=== PATIENT | male | born 1980 | race Caucasian/White ===

== ENCOUNTER 2018-07-10 07:56 | Emergency (ER) | payer OTHER ==
[2018-07-10 08:16] VITALS: BP 138/94
--- NOTE | 2018-07-10 08:19 | ED Physician Documentation ---
PD HPI LOWER EXT INJURY - Stated complaint Stated Complaint: RT LITTLE TOE BRUSING/PX - Chief complaint Chief Complaint: Ext Problem - History obtained from History obtained from: Patient - History of Present Illness PD HPI LOW EXT INJURY LOCATION: Right, Toe Type of injury: Blunt / blow Timing - onset: Today Worsened by: Moving, Palpating, Other (Weight bearing.) Associated symptoms: Swelling, Discolored Similar symptoms before: Has not had sx before - Additional information Additional information: The patient is a 37-year-old active [employer] [place] male who presents with injury to his right little toe. He was up during the night and thinks he may have stubbed his toe, although he is not certain. When he awoke this morning he found his little toe swollen, with ecchymosis at the tip. It is painful with weightbearing, movement, or palpation. He denies history of similar symptoms in the past. Review of Systems Constitutional: denies: Fever Musculoskeletal: reports: Extremity pain (right little toe) PD PAST MEDICAL HISTORY - Past Medical History Endocrine/Autoimmune: None - Present Medications Home Medications: Ambulatory Orders Medication Instructions Recorded Confirmed Lisinopril 10 mg PO DAILY 07/10/18 07/10/18 - Allergies Allergies/Adverse Reactions: Allergies Allergy/AdvReac Type Severity Reaction Status Date / Time Penicillins Allergy Unknown Verified 07/10/18 08:05 PD ED PE NORMAL - Vitals Vital signs reviewed: Yes (borderline hypertension) - General General: Alert and oriented X 3, Well developed/nourished - HEENT HEENT: Atraumatic - Respiratory Respiratory: No respiratory distress - Derm Derm: No rash - Extremities Extremities: Other (There is swelling of the right little toe, with associated tenderness to palpation. There is ecchymosis at the tip, with subungual hematoma. Distal neurovascular is intact. There is no break in the integument. ) - Neuro Neuro: Alert and oriented X 3, No motor deficit, No sensory deficit Results - Vitals Vitals: Vital Signs - 24 hr 07/10/18 08:06 Temperature 36.3 C L Heart Rate 92 Respiratory 16 Rate Blood Pressure 138/94 H O2 Saturation 97 Oxygen O2 Source Room air - Rads (name of study) right toes Radiology: Prelim report reviewed, EMP read contemporaneously, See rad report ( Negative right fifth toe radiography.) PD MEDICAL DECISION MAKING - ED course Complexity details: reviewed results, considered differential, d/w patient ED course: The patient's presentation is significant for contusion to the right little toe with a subungual hematoma. I suspect the injury is caused by a narrow toe box which impinges his little toe against the fourth toe. There is no evidence of fracture or foreign body on radiographic imaging. I discussed with the patient the likely cause of his injury, symptomatic treatment and outpatient follow-up, as well as potentially worrisome signs or symptoms that should prompt reevaluation in the emergency department. - Sepsis Event Vital Signs: Vital Signs - 24 hr 07/10/18 08:06 Temperature 36.3 C L Heart Rate 92 Respiratory 16 Rate Blood Pressure 138/94 H O2 Saturation 97 Oxygen O2 Source Room air Departure - Departure Disposition: 01 Home, Self Care Clinical Impression: Contusion of right lesser toe(s) with damage to nail, initial encounter Condition: Stable Instructions: ED Crush Injury Toe No Fx Follow-Up: JONNA LEMA MD [Primary Care Provider] - Comments: Keep your right foot elevated as much the time as possible. You can use ibuprofen, up to 800 mg 3 times daily for its anti-inflammatory effect. Wear shoes or boots with a wider toe box. Follow up with your primary physician within 2 weeks. Call to schedule appointment. Return to the emergency department if you develop increasing pain or swelling, any sign of infection, or otherwise worsening symptoms.
--- NOTE | 2018-07-10 08:59 | XRAY Report ---
Procedure Date: 07/10/2018 Accession Number: [id number] / [id number] Procedure: XR - Toe(s) RT CPT Code: FULL RESULT: EXAM: RIGHT TOE RADIOGRAPHY EXAM DATE: 07/10/2018 08:38 AM. CLINICAL HISTORY: Injury right little toe. COMPARISON: None. TECHNIQUE: 3 views. FINDINGS: Bones: No fracture or bone lesion. Joints: No dislocation or subluxations. Soft Tissues: No soft tissue radiopaque foreign body. IMPRESSION: Negative right 5th toe radiography. RAD[facility]
== END 2018-07-10 09:15 | disposition home or self-care (01) ==
LOC: ED 07:56
DX: S90.221A Contusion of right lesser toe(s) with damage to nail, initial encounter (principal)
CPT/HCPCS: 73660; 99282

== ENCOUNTER 2018-08-22 16:27 | Emergency (ER) | payer OTHER ==
[2018-08-22] MEDS ORDERED: HYDROmorphone 1 MG/ML CARPUJECT IVP STA (17:21)
[2018-08-22] MEDS ORDERED: KETOROLAC 60 MG/2 ML VIAL IVP STA (17:21)
--- NOTE | 2018-08-22 17:24 | ED Physician Documentation ---
History of Present Illness - Stated complaint Stated Complaint: MALE - Chief complaint Chief Complaint: General - History obtained from History obtained from: Patient, Family - History of Present Illness Timing: How many weeks ago (1) Pain level max: 10 Pain level now: 10 Improved by: lying down Worsened by: standing - Additonal information Additional information: R testicular pain for the past week. Seen by PCP, started on levaquin for possible epididymitis. R testicle retracted for past week. Worsening pain today. Has not had any imaging, UA, or labs. Review of Systems Ten Systems: 10 systems reviewed and negative Constitutional: denies: Fever, Chills Ears: denies: Ear pain Nose: denies: Rhinorrhea / runny nose, Congestion Throat: denies: Sore throat Cardiac: denies: Chest pain / pressure Respiratory: denies: Cough GI: denies: Abdominal Pain, Nausea, Vomiting, Diarrhea : reports: Other (no STD exposure). denies: Hematuria, Discharge Skin: denies: Rash Musculoskeletal: denies: Neck pain, Back pain Neurologic: denies: Headache PD PAST MEDICAL HISTORY - Past Medical History Cardiovascular: Hypertension Respiratory: None Neuro: None Endocrine/Autoimmune: None GI: None : None HEENT: None Psych: None Musculoskeletal: None Derm: None - Past Surgical History Ortho: Spine surgery - Present Medications Home Medications: Ambulatory Orders Medication Instructions Recorded Confirmed Lisinopril 10 mg PO DAILY 07/10/18 07/10/18 Levofloxacin [Levaquin] 500 mg PO 08/22/18 08/22/18 Oxycodone HCl/Acetaminophen 1 - 2 each PO Q6H PRN #14 tablet 08/22/18 [Percocet 5-325 mg Tablet] - Allergies Allergies/Adverse Reactions: Allergies Allergy/AdvReac Type Severity Reaction Status Date / Time Penicillins Allergy Unknown Verified 08/22/18 16:32 - Social History Does the pt smoke?: No Smoking Status: Never smoker Does the pt drink ETOH?: Yes Does the pt have substance abuse?: No - Immunizations Immunizations are current?: Yes - POLST Patient has POLST: No PD ED PE NORMAL - Vitals Vital signs reviewed: Yes - General General: Alert and oriented X 3, Other (appears uncomfortable) - HEENT HEENT: Moist mucous membranes - Neck Neck: Supple, no meningeal sign - Cardiac Cardiac: RRR, Strong equal pulses - Respiratory Respiratory: No respiratory distress, Clear bilaterally - Abdomen Abdomen: Soft, Non tender, Non distended - Male Male : Other (TTP R testicle. elevated R testicle. no overlying skin changes.) - Derm Derm: Warm and dry - Neuro Neuro: Alert and oriented X 3 - Psych Psych: Normal mood, Normal affect Results - Vitals Vitals: Vital Signs - 24 hr 08/22/18 08/22/18 08/22/18 16:30 18:40 20:20 Temperature 36 C L 36.4 C L Heart Rate 97 88 97 Respiratory 20 16 16 Rate Blood Pressure 149/128 H 148/72 H 152/96 H O2 Saturation 97 98 98 Oxygen O2 Source Room air - Labs Labs: Laboratory Tests 08/22/18 08/22/18 08/22/18 17:30 17:30 17:30 WBC 5.5 RBC 4.93 Hgb 15.5 Hct 44.2 MCV 89.7 MCH 31.4 H MCHC 35.0 RDW 13.9 Plt Count 260 MPV 8.1 Neut # (Auto) 2.8 Lymph # (Auto) 2.1 Wetzel # (Auto) 0.4 Eos # (Auto) 0.2 Baso # (Auto) 0.1 Absolute Nucleated RBC 0.00 Nucleated RBC % 0.1 Sodium 137 Potassium 4.4 Chloride 101 Carbon Dioxide 30 Anion Gap 6.0 BUN 17 Creatinine 1.2 Estimated GFR (MDRD) 69 L Glucose 96 Calcium 9.9 Total Bilirubin < 0.2 L AST 89 H ALT 111 H Alkaline Phosphatase 56 Total Protein 8.1 Albumin 4.4 Globulin 3.7 Albumin/Globulin Ratio 1.2 Lipase 69 H Urine Color YELLOW Urine Clarity CLEAR Urine pH 6.0 Ur Specific [place] >=1.030 H Urine Protein NEGATIVE Urine Glucose (UA) NEGATIVE Urine Ketones NEGATIVE Urine Occult Blood NEGATIVE Urine Nitrite NEGATIVE Urine Bilirubin NEGATIVE Urine Urobilinogen 0.2 (NORMAL) Ur Leukocyte Esterase NEGATIVE Ur Microscopic Review NOT INDICATED Urine Culture Comments NOT INDICATED - Rads (name of study) testicular US Radiology: Prelim report reviewed, EMP read contemporaneously, See rad report (Within normal limits. ) PD MEDICAL DECISION MAKING - ED course Complexity details: reviewed results, re-evaluated patient, considered differential, d/w patient, d/w family ED course: Patient is a 38-year-old male with right testicular pain of unclear etiology. No acute findings on ultrasound, laboratory testing or urinalysis. Pain well controlled. Will place on pain medication for home and follow-up with urology this week as he has been referred by his doctor. Patient will return if he worsens. Patient counseled regarding signs and symptoms for which I believe and urgent re-evaluation would be necessary. Patient with good understanding of and agreement to plan and is comfortable going home at this time This document was made in part using voice recognition software. While efforts are made to proofread this document, sound alike and grammatical errors may occur. No evidence of ureteral stone or appendicitis or hernia - Sepsis Event Vital Signs: Vital Signs - 24 hr 08/22/18 08/22/18 08/22/18 16:30 18:40 20:20 Temperature 36 C L 36.4 C L Heart Rate 97 88 97 Respiratory 20 16 16 Rate Blood Pressure 149/128 H 148/72 H 152/96 H O2 Saturation 97 98 98 Oxygen O2 Source Room air Departure - Departure Disposition: 01 Home, Self Care Clinical Impression: Testicular pain, right Condition: Good Instructions: ED Testicular Pain UKO Follow-Up: JONNA LEMA MD [Primary Care Provider] - Within 3 Days Prescriptions: Oxycodone HCl/Acetaminophen [Percocet 5-325 mg Tablet] 1 - 2 each PO Q6H PRN #14 tablet PRN Reason: pain Comments: Return if you worsen. The cause of your symptoms is unclear today. Your ultrasound is normal today. your lab tests are normal today. Discharge Date/Time: 08/22/18 20:22
[2018-08-22 17:44] LABS: BASOPHILS # (AUTO) 0.1 10^3/uL (0.0-0.1); BASOPHILS % (AUTO) 1.2 %; EOSINOPHILS # (AUTO) 0.2 10^3/uL (0.0-0.7); EOSINOPHILS % (AUTO) 3.1 %; HGB - HEMOGLOBIN 15.5 g/dL (14.0-18.0); LYMPHOCYTES # (AUTO) 2.1 10^3/uL (1.5-3.5); LYMPHOCYTES % (AUTO) 37.3 %; MEAN CORPUSCULAR HEMOGLOBIN 31.4 pg (27.0-31.0); MEAN CORPUSCULAR VOLUME 89.7 fL (80.0-94.0); MEAN PLATELET VOLUME 8.1 fL (7.4-11.4); MONOCYTES # (AUTO) 0.4 10^3/uL (0.0-1.0); MONOCYTES % (AUTO) 7.9 %; NEUTROPHILS # (AUTO) 2.8 10^3/uL (1.5-6.6); NEUTROPHILS % (AUTO) 50.5 %; PLT - PLATELET COUNT 260 10^3/uL (130-450); RED BLOOD COUNT 4.93 10^6/uL (4.70-6.10); RED CELL DISTRIBUTION WIDTH 13.9 % (12.0-15.0); WHITE BLOOD COUNT 5.5 x10^3/uL (4.8-10.8)
[2018-08-22 17:47] LABS: BILIRUBIN,URINE NEGATIVE (NEGATIVE); GLUCOSE, URINE (UA) NEGATIVE (NEGATIVE); KETONES,URINE (UA) NEGATIVE (NEGATIVE); LEUKOCYTE ESTERASE, URINE NEGATIVE (NEGATIVE); NITRITE,URINE NEGATIVE (NEGATIVE); OCCULT BLOOD,URINE NEGATIVE (NEGATIVE); PROTEIN,URINE NEGATIVE (NEGATIVE); UROBILINOGEN,URINE 0.2 (NORMAL) E.U./dL (NORMAL)
[2018-08-22 17:53] LABS: CLARITY,URINE CLEAR (CLEAR)
[2018-08-22 18:02] LABS: ALBUMIN 4.4 g/dL (3.2-5.5); ALBUMIN/GLOBULIN RATIO 1.2 (1.0-2.2); ALKALINE PHOSPHATASE 56 IU/L (42-121); ALT ALANINE AMINOTRANSFERASE 111 IU/L (10-60); AST ASPARTATE AMINOTRANSFERASE 89 IU/L (10-42); BILIRUBIN,TOTAL < 0.2 mg/dL (0.2-1.0); BUN - BLOOD UREA NITROGEN 17 mg/dL (6-20); CALCIUM 9.9 mg/dL (8.5-10.3); CARBON DIOXIDE - CO2 30 mmol/L (21-32); CHLORIDE 101 mmol/L (101-111); CREATININE 1.2 mg/dL (0.6-1.2); GFR - MDRD 69 (>89); GLUCOSE 96 mg/dL (70-100); LIPASE 69 U/L (22-51); SODIUM 137 mmol/L (135-145); TOTAL PROTEIN 8.1 g/dL (6.7-8.2)
--- NOTE | 2018-08-22 18:42 | Ultrasound Report ---
Reason: R testicular pain Procedure Date: 08/22/2018 Accession Number: [id number] / [id number] Procedure: US - Testicle w/Doppler CPT Code: FULL RESULT: EXAM: SCROTAL ULTRASOUND EXAM DATE: 08/22/2018 06:12 PM. CLINICAL HISTORY: Right testicular pain. COMPARISON: None. TECHNIQUE: Real-time scanning was performed with static images obtained. Both color-flow and Doppler spectral analysis were utilized. FINDINGS: Right: Testis: 4.1 x 2.8 x 2.2 cm. Normal size and echotexture. No mass, calcification, or abnormal blood flow. Epididymis: 4.2 x 0.4 x 1.7 cm. Normal size and echotexture. No mass or abnormal blood flow. Hydrocele: None. Varicocele: None. Left: Testis: 3.7 x 2.8 x 2.1 cm. Normal size and echotexture. No mass, calcification, or abnormal blood flow. Epididymis: 3.6 x 0.4 x 0.7 cm. Normal size and echotexture. No mass or abnormal blood flow. Hydrocele: None. Varicocele: None. IMPRESSION: Within normal limits. RADIA
[2018-08-22] MEDS ORDERED: oxyCODONE/ACET 5/325 Prepack 4 PO STA (20:02)
[2018-08-22 20:21] VITALS: BP 152/96
== END 2018-08-22 20:22 | disposition home or self-care (01) ==
LOC: ED 16:27
DX: N50.811 Right testicular pain (principal); I10 Essential (primary) hypertension
CPT/HCPCS: 36415; 76870; 80053; 81003; 83690; 85025; 93975; 96374; 96375; 99283; 99284; J1170; 81001; 87086

== ENCOUNTER 2018-10-06 09:19 | Outpatient (CLI) | payer OTHER | END 2018-10-06 09:20 | disposition home or self-care (01) | LOC: SC 09:19 | PROVIDERS: ATTEND Internal Medicine Pulmonary Disease | DX: G47.30 Sleep apnea, unspecified (principal); G47.10 Hypersomnia, unspecified; R41.89 Other symptoms and signs involving cognitive functions and awareness; G47.8 Other sleep disorders; E66.9 Obesity, unspecified; Z68.37 Body mass index [BMI] 37.0-37.9, adult | CPT/HCPCS: 99203; 99212 ==

== ENCOUNTER 2018-10-23 06:22 | Emergency (ER) | payer OTHER ==
[2018-10-23 06:30] VITALS: BP 168/107
--- NOTE | 2018-10-23 06:52 | ED Physician Documentation ---
PD HPI HEENT - Stated complaint Stated Complaint: LT EAR PX/CONGESSION - Chief complaint Chief Complaint: Heent - History obtained from History obtained from: Patient, Family - History of Present Illness Timing - onset: Yesterday Timing - details: Abrupt onset, Still present Pain level max: 5 Pain level now: 5 Location: Left ear Improves: Nothing Worsens: Other (nothing) Associated symptoms: Congestion. No: Fever, Rhinorrhea, Trismus, Unable to swallow, Swollen nodes, Facial swelling, Headache, Cough Similar symptoms before: Has not had sx before Recently seen: Not recently seen - Additional information Additional information: 38-year-old male with no past medical or surgical history except for ear tubes as a child here with complaint of left ear pain since yesterday. He stated that the past 4 days he has been having nasal congestion and a cold. Denies any fever, nausea or vomiting.Denies any trauma, travel. Review of Systems Ten Systems: 10 systems reviewed and negative Constitutional: denies: Fever, Myalgias Ears: reports: Ear pain, Drainage/discharge. denies: Loss of hearing, Tinnitus/ringing, Foreign body Nose: reports: Rhinorrhea / runny nose Throat: denies: Sore throat Respiratory: denies: Cough GI: denies: Nausea, Vomiting PD PAST MEDICAL HISTORY - Past Medical History Cardiovascular: Hypertension Respiratory: None Neuro: None Endocrine/Autoimmune: None GI: None : None HEENT: None Psych: None Musculoskeletal: None Derm: None - Past Surgical History Ortho: Spine surgery - Present Medications Home Medications: Ambulatory Orders Medication Instructions Recorded Confirmed Lisinopril 10 mg PO DAILY 07/10/18 07/10/18 Levofloxacin [Levaquin] 500 mg PO 08/22/18 08/22/18 Oxycodone HCl/Acetaminophen 1 - 2 each PO Q6H PRN #14 tablet 08/22/18 [Percocet 5-325 mg Tablet] Amox/Clav 875/125 [Augmentin] 1 each PO Q12H 10 Days #20 tablet 10/23/18 Neomycin/Polymyx/Hc Otic Drops 4 drops OT TID 10 Days #10 bottle 10/23/18 [Cortisporin Ear Susp] - Allergies Allergies/Adverse Reactions: Allergies Allergy/AdvReac Type Severity Reaction Status Date / Time Penicillins Allergy Unknown Verified 10/23/18 06:30 - Social History Does the pt smoke?: No Smoking Status: Never smoker Does the pt drink ETOH?: Yes Does the pt have substance abuse?: No - Immunizations Immunizations are current?: Yes - POLST Patient has POLST: No PD ED PE NORMAL - Vitals Vital signs reviewed: Yes - General General: Alert and oriented X 3, No acute distress, Well developed/nourished - HEENT HEENT: Atraumatic, PERRL, EOMI, Moist mucous membranes, Pharynx benign, Other (Left ear positive tenderness to palpation of the tragus. No tenderness in palpation of mastoid area. External auditory canal at the end with clear beige secretions small amount. TMs with erythema and poor markings.) - Neck Neck: Supple, no meningeal sign, No adenopathy - Cardiac Cardiac: RRR, No murmur - Respiratory Respiratory: No respiratory distress, Clear bilaterally - Abdomen Abdomen: Normal bowel sounds, Soft, Non tender, Non distended - Derm Derm: Normal color, Warm and dry - Extremities Extremities: No deformity - Neuro Neuro: Alert and oriented X 3 - Psych Psych: Normal mood, Normal affect Results - Vitals Vitals: Vital Signs - 24 hr 10/23/18 06:27 Temperature 36.2 C L Heart Rate 108 H Respiratory 19 Rate Blood Pressure 168/107 H O2 Saturation 96 Oxygen O2 Source Room air PD MEDICAL DECISION MAKING - ED course Complexity details: considered differential (Otitis externa, otitis media, mastoiditis), d/w patient Departure - Departure Disposition: 01 Home, Self Care Clinical Impression: Left otitis media with effusion Acute ear pain Qualifiers: Laterality: left Qualified Code(s): H92.02 - Otalgia, left ear Left otitis externa Qualifiers: Otitis externa type: unspecified type Chronicity: acute Qualified Code(s): H60.502 - Unspecified acute noninfective otitis externa, left ear Condition: Stable Instructions: ED Otitis Media Serous Adult, ED Otitis Externa Prescriptions: Amox/Clav 875/125 [Augmentin] 1 each PO Q12H 10 Days #20 tablet Neomycin/Polymyx/Hc Otic Drops [Cortisporin Ear Susp] 4 drops OT TID 10 Days #10 bottle Comments: Take antibiotics and eardrops as prescribed. Take [id number] Tylenol every 4 hours and alternate with Motrin every 6 hours for fever pain. Follow-up with your primary doctor in 1 week. If worse return to the emergency room.
== END 2018-10-23 07:06 | disposition home or self-care (01) ==
LOC: ED 06:22
DX: H65.92 Unspecified nonsuppurative otitis media, left ear (principal); H60.502 Unspecified acute noninfective otitis externa, left ear; I10 Essential (primary) hypertension
CPT/HCPCS: 99283

== ENCOUNTER 2018-11-17 20:20 | Outpatient (CLI) | payer OTHER | END 2018-11-17 20:21 | disposition home or self-care (01) | LOC: SC 20:20 | PROVIDERS: ATTEND Internal Medicine Pulmonary Disease | DX: G47.33 Obstructive sleep apnea (adult) (pediatric) (principal) | CPT/HCPCS: 95811 ==

== ENCOUNTER 2018-12-09 09:55 | Outpatient (CLI) | payer OTHER | END 2018-12-09 09:56 | disposition home or self-care (01) | LOC: SC 09:55 | PROVIDERS: ATTEND Nurse Practitioner Family | DX: G47.33 Obstructive sleep apnea (adult) (pediatric) (principal) | CPT/HCPCS: 99212; 99214 ==

== ENCOUNTER 2019-03-13 16:35 | Emergency (ER) | payer OTHER ==
[2019-03-13 16:41] VITALS: BP 163/98
[2019-03-13] MEDS ORDERED: CHERRY SYRUP 10 ML UDC PO ONE (16:51)
[2019-03-13] MEDS ORDERED: DEXAMETHASONE 10 MG/ML VIAL PO STA (16:51)
--- NOTE | 2019-03-13 16:54 | ED Physician Documentation ---
History of Present Illness - Stated complaint Stated Complaint: RIB PX - Chief complaint Chief Complaint: General - History obtained from History obtained from: Patient, Family - History of Present Illness Timing: Today - Additonal information Additional information: 38-year-old male was on his way to work this morning when he had a coughing paroxysm after a tickle in his throat and this led to some pain in his right chest. The pain was significant at the time and then improved. He was at work and during the time that he was work pain that began to mount worse and worse and he is decided to come to the emergency department. In route to the emergency department laying flat in his car his pain was much improved sitting up here in the department his pain is worse again. He has had a cough out of nowhere and he has had middle ear infection 2 months ago. He did develop some pain in the left ear and jaw about a week ago that resolved. Review of Systems Constitutional: denies: Fever Eyes: denies: Decreased vision Ears: reports: Ear pain Nose: reports: Rhinorrhea / runny nose, Congestion Throat: denies: Sore throat Cardiac: reports: Chest pain / pressure. denies: Palpitations, Pedal edema, Calf pain Respiratory: reports: Cough. denies: Dyspnea, Wheezing GI: denies: Abdominal Pain, Nausea, Vomiting : denies: Dysuria, Frequency PD PAST MEDICAL HISTORY - Past Medical History Past Medical History: Yes Cardiovascular: Hypertension Respiratory: None Neuro: None Endocrine/Autoimmune: None GI: None : None HEENT: None Psych: None Musculoskeletal: None Derm: None - Past Surgical History Ortho: Spine surgery - Present Medications Home Medications: Ambulatory Orders Medication Instructions Recorded Confirmed Lisinopril 10 mg PO DAILY 07/10/18 07/10/18 Azithromycin [Zithromax] 250 mg PO DAILY #6 tablet 03/13/19 Hydrocodone/Acetaminophen 1 - 2 each PO Q6H PRN #14 tablet 03/13/19 [Hydrocodon-Acetaminophen 5-325] - Allergies Allergies/Adverse Reactions: Allergies Allergy/AdvReac Type Severity Reaction Status Date / Time Penicillins Allergy Unknown Verified 03/13/19 16:40 - Social History Does the pt smoke?: No Smoking Status: Never smoker Does the pt drink ETOH?: Yes Does the pt have substance abuse?: No - Immunizations Immunizations are current?: Yes - POLST Patient has POLST: No PD ED PE NORMAL - Vitals Vital signs reviewed: Yes (hypertensive ) - General General: Alert and oriented X 3, No acute distress, Well developed/nourished - HEENT HEENT: Atraumatic, PERRL, EOMI, Pharynx benign, Other (Both TM's have extensive tympanosclerosis. The right is not inflamed the left is inflamed centrally ) - Neck Neck: Supple, no meningeal sign, No bony TTP - Cardiac Cardiac: RRR, No murmur - Respiratory Respiratory: No respiratory distress, Clear bilaterally, Other (There is s pecific point tenderness to the anterior right chest wall reproducing the pain the patient is experiencing. ) - Abdomen Abdomen: Soft, Non tender - Back Back: No CVA TTP, No spinal TTP - Derm Derm: Normal color, Warm and dry, No rash - Extremities Extremities: No deformity, No edema - Neuro Neuro: Alert and oriented X 3, deburr technician 2-12 intact, No motor deficit, No sensory deficit, Normal speech Eye Opening: Spontaneous Motor: Obeys Commands Verbal: Oriented GCS Score: 15 - Psych Psych: Normal mood, Normal affect Results - Vitals Vitals: Vital Signs - 24 hr 03/13/19 16:38 Heart Rate 92 Respiratory 20 Rate Blood Pressure 163/98 H O2 Saturation 97 Oxygen O2 Source Room air - Rads (name of study) chest 2 veiw Radiology: Prelim report reviewed (Impression: 1. Hazy left lower lung and left base opacities could reflect mild infection.), EMP read indepedently, See rad report PD MEDICAL DECISION MAKING - ED course Complexity details: reviewed results, re-evaluated patient, considered differential, d/w patient ED course: 38-year-old male with an acute coughing paroxysm and right chest strain associated with this has otitis on exam and he is administered dexamethasone 10 mg orally we will provide some pain medication and antibiotic. Departure - Departure Disposition: 01 Home, Self Care Clinical Impression: Left otitis media with effusion Strain of chest wall Qualifiers: Encounter type: initial encounter Qualified Code(s): S29.011A - Strain of muscle and tendon of front wall of thorax, initial encounter Condition: Stable Instructions: ED Otitis Media Acute Adult, ED Chest Pain Costochondritis Follow-Up: ZACH LYNN III, MD [Primary Care Provider] - Prescriptions: Azithromycin [Zithromax] 250 mg PO DAILY #6 tablet Hydrocodone/Acetaminophen [Hydrocodon-Acetaminophen 5-325] 1 - 2 each PO Q6H PRN #14 tablet PRN Reason: pain Forms: Activity restrictions
--- NOTE | 2019-03-13 17:28 | XRAY Report ---
Reason: right sided chest pain Procedure Date: 03/13/2019 Accession Number: [id number] / [id number] Procedure: XR - Chest 2 View X-Ray CPT Code: 76588 FULL RESULT: EXAM: CHEST RADIOGRAPHY EXAM DATE: 03/13/2019 05:06 PM. CLINICAL HISTORY: Right sided chest pain. COMPARISON: TOE(S) RT 07/10/2018 8:25 AM. TECHNIQUE: 2 views. FINDINGS: Lungs/Pleura: Hazy left lower lung and left base opacities could reflect mild infection. Right lung is clear. No pleural effusion or pneumothorax. Mediastinum: Heart and mediastinal contours are unremarkable. Other: None. IMPRESSION: 1. Hazy left lower lung and left base opacities could reflect mild infection. [facility]
== END 2019-03-13 17:50 | disposition home or self-care (01) ==
LOC: ED 16:35
DX: H66.92 Otitis media, unspecified, left ear (principal); S29.011A Strain of muscle and tendon of front wall of thorax, initial encounter; X50.1XXA Overexertion from prolonged static or awkward postures, initial encounter; I10 Essential (primary) hypertension
CPT/HCPCS: 71046; 99283; 99284; A9270

== ENCOUNTER 2019-08-06 19:21 | Emergency (ER) | payer OTHER ==
[2019-08-06] MEDS ORDERED: DEXAMETHASONE 10 MG/ML VIAL PO STA (21:36)
[2019-08-06] MEDS ORDERED: KETOROLAC 60 MG/2 ML VIAL IM STA (21:36)
[2019-08-06] MEDS ORDERED: CHERRY SYRUP 10 ML UDC PO ONE (21:36)
--- NOTE | 2019-08-06 21:37 | ED Physician Documentation ---
PD HPI BACK PAIN - Stated complaint Stated Complaint: MID/UPPER BACK PX - Chief complaint Chief Complaint: Back Pain - History obtained from History obtained from: Patient, Family - History of Present Illness Timing - onset: How many days ago (10) Timing - duration: Days (10) Timing - details: Gradual onset, Still present Location: Upper Quality: Pain, Spasm, Sharp Associated symptoms: No: Fever, Weakness, Numbness, Incontinent of urine, Unable to urinate, Hematuria, Incontinent of stool Improves with: Rest Worsened by: Movement, Lifting, Twisting Similar symptoms before: Diagnosis (lumbar disc disease) Recently seen: Not recently seen Review of Systems Constitutional: denies: Fever Eyes: denies: Decreased vision Ears: denies: Ear pain Nose: denies: Congestion Throat: denies: Sore throat Cardiac: reports: Chest pain / pressure. denies: Palpitations, Pedal edema, Calf pain Respiratory: denies: Dyspnea, Cough GI: denies: Abdominal Pain, Nausea, Vomiting : denies: Dysuria, Frequency PD PAST MEDICAL HISTORY - Past Medical History Cardiovascular: Hypertension Respiratory: None Neuro: None Endocrine/Autoimmune: None GI: None : None HEENT: None Psych: None Musculoskeletal: None Derm: None - Past Surgical History Ortho: Spine surgery - Present Medications Home Medications: Ambulatory Orders Medication Instructions Recorded Confirmed Lisinopril 10 mg PO DAILY 07/10/18 07/10/18 Azithromycin [Zithromax] 250 mg PO DAILY #6 tablet 03/13/19 Hydrocodone/Acetaminophen 1 - 2 each PO Q6H PRN #14 tablet 03/13/19 [Hydrocodon-Acetaminophen 5-325] Cyclobenzaprine [Flexeril] 10 mg PO TID PRN #20 tablet 08/06/19 Hydrocodone/Acetaminophen 1 - 2 each PO Q6H PRN #14 tablet 08/06/19 [Hydrocodon-Acetaminophen 5-325] - Allergies Allergies/Adverse Reactions: Allergies Allergy/AdvReac Type Severity Reaction Status Date / Time codeine Allergy Unknown Verified 08/06/19 19:29 Penicillins Allergy Unknown Verified 08/06/19 19:29 - Social History Does the pt smoke?: No Smoking Status: Never smoker Does the pt drink ETOH?: Yes Does the pt have substance abuse?: No - Immunizations Immunizations are current?: Yes - POLST Patient has POLST: No PD ED PE NORMAL - Vitals Vital signs reviewed: Yes (hypertensive) - General General: Alert and oriented X 3, No acute distress, Well developed/nourished - HEENT HEENT: Atraumatic, PERRL, EOMI - Neck Neck: Supple, no meningeal sign, No bony TTP - Cardiac Cardiac: RRR, No murmur - Respiratory Respiratory: No respiratory distress, Clear bilaterally, Other (There is tenderness to the paraspinous muscles of the thoracic spine at about the level of T8/9 on the left side. 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 No acute abnormality seen in the chest.), EMP read indepedently, See rad report thoracic spine Radiology: Prelim report reviewed (Impression: 1. No acute thoracic spine abnormality.), EMP read indepedently, See rad report PD MEDICAL DECISION MAKING - ED course Complexity details: considered differential, d/w patient, d/w family ED course: 39-year-old male with a history of lumbar disc disease who is status post fusion has developed pain in his back and this is in the upper back in the thoracic region and he has pain radiating around to his front. X-rays of the chest and thoracic spine without abnormality and patient is administered dexamethasone 10 mg orally as well as 60 mg of Toradol. We will place him on some hydrocodone and Flexeril. Departure - Departure Disposition: 01 Home, Self Care Clinical Impression: Thoracic radiculopathy Condition: Stable Instructions: ED Cervical Radiculopathy Follow-Up: HAYLEY SUERO MD [Primary Care Provider] - Prescriptions: Cyclobenzaprine [Flexeril] 10 mg PO TID PRN #20 tablet PRN Reason: Spasms Hydrocodone/Acetaminophen [Hydrocodon-Acetaminophen 5-325] 1 - 2 each PO Q6H PRN #14 tablet PRN Reason: pain
[2019-08-06] MEDS ORDERED: CYCLOBENZAPRINE 10 MG Prepack 2 PO PRN (22:24)
[2019-08-06] MEDS ORDERED: HYDROcod/ACET 5/325 Prepack 4 PO STA (22:24)
--- NOTE | 2019-08-06 22:40 | XRAY Report ---
Reason: lower thoracic spine pain radiating to the front. Procedure Date: 08/06/2019 Accession Number: [id number] / [id number] Procedure: XR - Chest 2 View X-Ray CPT Code: 98435 FULL RESULT: EXAM: CHEST RADIOGRAPHY EXAM DATE: 08/06/2019 10:08 PM. CLINICAL HISTORY: Lower thoracic spine pain radiating to the front. COMPARISON: CHEST 2 VIEW 03/13/2019 4:54 PM. TECHNIQUE: 2 views. FINDINGS: Lungs/Pleura: No alveolar consolidation or pleural effusion seen. No pneumothorax. Mediastinum: Heart and mediastinal contours are unremarkable. Other: None. IMPRESSION: 1. No acute abnormality seen in the chest. RADIA
--- NOTE | 2019-08-06 22:43 | XRAY Report ---
Reason: lower thoracic spine pain radiating Procedure Date: 08/06/2019 Accession Number: [id number] / [id number] Procedure: XR - Thoracic Spine 2 View CPT Code: FULL RESULT: EXAM: THORACIC SPINE RADIOGRAPHY EXAM DATE: 08/06/2019 10:08 PM. CLINICAL HISTORY: Lower thoracic spine pain radiating to the front. COMPARISON: CHEST 2 VIEW 08/06/2019 9:55 PM. TECHNIQUE: 3 views. FINDINGS: Alignment: Unremarkable. Bones: No fracture seen. T12 is not completely included on the lateral view, but is included on the chest radiograph. Disks: Disk heights are maintained. Soft Tissues: Grossly unremarkable. IMPRESSION: 1. No acute thoracic spine abnormality. RADIA
[2019-08-06 22:47] VITALS: BP 130/85
== END 2019-08-06 22:56 | disposition home or self-care (01) ==
LOC: ED 19:21
DX: M54.14 Radiculopathy, thoracic region (principal); R07.9 Chest pain, unspecified; I10 Essential (primary) hypertension; Z98.1 Arthrodesis status
CPT/HCPCS: 71046; 72070; 96372; 99284; A9270

== ENCOUNTER 2019-09-14 15:46 | Emergency (ER) | payer OTHER ==
[2019-09-14 16:01] VITALS: BP 144/85
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
[2019-09-14] MEDS ORDERED: BUFFERED LIDOCAINE 10 ML SYRINGE SUBQ STA (17:33)
[2019-09-14] MEDS ORDERED: LIDOCAINE PATCH 5% TOP STA (17:33)
== END 2019-09-14 18:18 | disposition home or self-care (01) ==
LOC: ED 15:46
DX: M54.6 Pain in thoracic spine (principal); I10 Essential (primary) hypertension
CPT/HCPCS: 20552; 99283; 99284; A9270

== ENCOUNTER 2019-10-27 10:40 | Outpatient (CLI) | payer OTHER ==
[2019-10-27 11:35] VITALS: BP 130/78
--- NOTE | 2019-10-27 11:35 | SLEEP CARE CONSULTATION ---
Information from patient questionnaire entered by Adriane Carlos. I have reviewed and concur with the information entered by Adriane Carlos. This document represents the service I personally performed and the decisions made by me, Jennifer Carter, RN, MSN, UNDERGRADUATE INTERN. History of Present Illness Previous diagnosis: Severe, Obstructive Sleep Apnea-Hypopnea Syndrome AHI: 51.2 Reason for follow up: first compliance Equipment type: CPAP Equipment obtained from: [employer] Mask style: Nasal pillows Mask brand: [employer] ([employer] sent him another that is not comfortable) Backup mask available: Yes (spare mask does not fit. 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 denies: aerophagia, mask discomfort, condensation in mask/hose, nasal congestion, epistaxis Observed to snore while using device: Yes (mild ) Current pressure setting perceived as: comfortable On therapy, patient: reports: sleeping better, awakening more refreshed, being more awake and alert during the day, more rested overall. denies: drowsiness while driving Initial [place] Sleepiness Scale score: 16 Current [place] Sleepiness Scale score: 10 Allergies and Home Medications Known drug allergies: Yes (see list ) Home medication list reviewed: Yes Allergy and home medication list: Medication Name (generic/name brand) Strength & Dosage Lisinopril 10mg tab one daily Allergy List Penicillin Review of Systems Review of systems same as previous: No (Back and rib pain sustained after cough ing - evaluated) Physical Exam Blood Pressure: 130/78 (monitors at home in normal range) Cuff size: long Heart Rate: 89 O2 Saturation: 97 Height: 6 ft 0.5 in Weight: 312 lb 12.8 oz Body Mass Index: 41.8 BMI Classification: Obesity Class 3 Impression and Plan 1. Obstructive Sleep Apnea-Hypopnea Syndrome, severe, with good treatment compliance and good apnea control. On CPAP therapy, the patient has better sleep quality and is more rested overall. To reduce snoring, I will change his CPAP range to [id number]. He had aerophagia at initiation of treatment when at [id number]. He is advised to contact me if pressure change insufficient or uncomfortable. For oral dryness, he is to increase humidity as instructed on sample device. Printed instructions given with rationale for why to adjust settings. To reduce mask leaks when he sleeps on his side, I showed him a CPAP pillow. This and other styles can be bought online for about$60. He has gained weight since injured back. He is hoping to lose 100 pounds slowly in the next year when able to increase his physical activity and modify his diet. I explained how significant weight can decrease apnea, CPAP pressure and overall health risks. Symptoms to report for future pressure change discussed. It will not be changed to new range now due to mild snoring. Patient's apnea severity and rationale for treatment to reduce apnea, improve sleep quality and reduce cardiovascular and cerebrovascular events was reviewed. I also reviewed the benefit of consistent device use of CPAP for hypertension, depression/anxiety,. * Continue CPAP pressure at 10-11 cmH2O * Consider CPAP pillow. * Adjust humidity * Notify me if snoring with mask or feeling that the pressure is too much or too little * Attempt to lose weight * Return for follow up in 6 months , or sooner if concerns arise I spent 100% of this 30 minute visit face to face with the patient with greater than 50% of this was spent time counseling the patient and coordination of care.
== END 2019-10-27 10:41 | disposition home or self-care (01) ==
LOC: SC 10:40
PROVIDERS: ATTEND Nurse Practitioner Family
DX: G47.33 Obstructive sleep apnea (adult) (pediatric) (principal); E66.9 Obesity, unspecified; Z68.41 Body mass index [BMI] 40.0-44.9, adult
CPT/HCPCS: 99212; 99214

== ENCOUNTER 2019-11-01 11:14 | Emergency (ER) | payer OTHER ==
[2019-11-01] MEDS ORDERED: diazePAM 5 MG TABLET PO STA (12:25)
[2019-11-01] MEDS ORDERED: KETOROLAC 30 MG/ML VIAL IM STA (12:26)
--- NOTE | 2019-11-01 12:26 | ED Physician Documentation ---
History of Present Illness - Stated complaint Stated Complaint: UPPER BACK PX - Chief complaint Chief Complaint: Back Pain - Additonal information Additional information: This is a 39-year-old male with chronic back pain who presents with an exacerbation of his pain. Patient has had some mid thoracic pain for months, he is being followed as an outpatient for this, he has had x-rays which were unrevealing, and he is currently about to start physical therapy. If he is not having improvement physical therapy they plan to do an MRI. He states that his back pain is been manageable and somewhat waxing and waning of the last month, but today while he was at work he began having some spasming in his right paraspinous muscles. He states that it radiates Around his back towards his lateral back somewhat. He denies weakness, numbness, tingling, bowel or bladder changes, or fever. Review of Systems Constitutional: denies: Fever Skin: denies: Rash Musculoskeletal: reports: Back pain Neurologic: denies: Focal weakness PD PAST MEDICAL HISTORY - Past Medical History Cardiovascular: Hypertension Respiratory: None Neuro: None Endocrine/Autoimmune: None GI: None : None HEENT: None Psych: None Musculoskeletal: None Derm: None - Past Surgical History Past Surgical History: Yes Ortho: Spine surgery - Present Medications Home Medications: Ambulatory Orders Medication Instructions Recorded Confirmed Lisinopril 10 mg PO DAILY 07/10/18 07/10/18 Azithromycin [Zithromax] 250 mg PO DAILY #6 tablet 03/13/19 Hydrocodone/Acetaminophen 1 - 2 each PO Q6H PRN #14 tablet 03/13/19 [Hydrocodon-Acetaminophen 5-325] Cyclobenzaprine [Flexeril] 10 mg PO TID PRN #20 tablet 08/06/19 Hydrocodone/Acetaminophen 1 - 2 each PO Q6H PRN #14 tablet 08/06/19 [Hydrocodon-Acetaminophen 5-325] Lidocaine Patch 5% [Lidoderm Patch] 1 each TOP DAILY PRN #7 patch 09/14/19 Methocarbamol 500 mg PO TID PRN #15 tablet 09/14/19 diazePAM [Valium] 5 mg PO TID PRN #7 tablet 11/01/19 - Allergies Allergies/Adverse Reactions: Allergies Allergy/AdvReac Type Severity Reaction Status Date / Time codeine Allergy Unknown Verified 11/01/19 11:18 Penicillins Allergy Unknown Verified 11/01/19 11:18 - Social History Does the pt smoke?: No Smoking Status: Never smoker Does the pt drink ETOH?: Yes Does the pt have substance abuse?: No - Immunizations Immunizations are current?: Yes - POLST Patient has POLST: No PD ED PE NORMAL - Vitals Vital signs reviewed: Yes - General General: Alert and oriented X 3, No acute distress - HEENT HEENT: Atraumatic, PERRL - Neck Neck: Supple, no meningeal sign - Cardiac Cardiac: RRR - Respiratory Respiratory: No respiratory distress, Clear bilaterally - Abdomen Abdomen: Other (Rotund, soft, non-tender in all 4 quadrants) - Back Back: No spinal TTP, Other (There is tenderness in the left and right paraspinous muscles in the region of T8-T9. No specific midline tenderness, no overlying skin changes) - Derm Derm: Warm and dry - Extremities Extremities: No deformity - Neuro Neuro: Alert and oriented X 3 - Psych Psych: Normal mood, Normal affect Results - Vitals Vitals: Oxygen O2 Source Room air - Labs Labs: Laboratory Tests 11/01/19 11/01/19 12:45 12:45 WBC 7.2 RBC 4.85 Hgb 14.8 Hct 44.0 MCV 90.7 MCH 30.5 MCHC 33.6 RDW 13.2 Plt Count 207 MPV 9.7 Neut # (Auto) 4.0 Lymph # (Auto) 2.1 [place] # (Auto) 0.7 Eos # (Auto) 0.2 Baso # (Auto) 0.1 Absolute Nucleated RBC 0.00 Nucleated RBC % 0.0 Sodium 135 Potassium 4.6 Chloride 95 L Carbon Dioxide 27 Anion Gap 13.0 BUN 16 Creatinine 1.0 Estimated GFR (MDRD) 84 L Glucose 310 H Calcium 9.8 Total Bilirubin 0.8 AST 162 H ALT 158 H Alkaline Phosphatase 82 Total Protein 7.8 Albumin 4.2 Globulin 3.6 Albumin/Globulin Ratio 1.2 Lipase 51 - Rads (name of study) RUQ US Radiology: Other (No cholelithiasis, cholecystitis, or CBD dilation) PD MEDICAL DECISION MAKING - ED course Complexity details: considered differential (Muscle strain, Muscle spasm, herniated disk) ED course: Patient presents with an exacerbation of chronic back pain. He has tenderness in the paraspinous muscles. He has normal strength and normal neurologic exam, no red flags, no midline tenderness, skin changes, fever. He was given Valium as well as Toradol for his pain. His pain does radiate somewhat towards his lateral back towards his RUQ and though I think is unlikely his abdominal pathology because he has a benign abdominal exam, after discussion with the patient we did obtain basic labs, which showed mild AST and ALT elevations. This is more likely due to steatosis/NAFLD, however RUQ US was obtained showing no acute biliary pathology. No symptoms to suggest infectious hepatitis, and he is not taking overdoses of tylenol. I discussed the AST and ALT findings, as well as his elevated glucose that likely represents diabetes, which was previously undiagnosed. I emphasized that he needs to follow up with his PCP as soon as possible for follow up on these issues. He verbalizes understanding. I reviewed return precautions and pt was discharged home. Departure - Departure Disposition: 01 Home, Self Care Clinical Impression: Liver enzyme elevation Back pain Qualifiers: Back pain location: thoracic back pain Chronicity: chronic Back pain laterality: unspecified Qualified Code(s): M54.6 - Pain in thoracic spine Condition: Good Follow-Up: HAYLEY SUERO MD [Primary Care Provider] - Within 1 week (For follow-up on elevated liver enzymes and back pain) Prescriptions: diazePAM [Valium] 5 mg PO TID PRN #7 tablet PRN Reason: Spasms Comments: You were seen today for back pain. Your labs showed some elevated liver enzymes, but your ultrasound of your gallbladder appeared normal. I am concerned this may be some inflammation of her liver related to hepatic steatosis or fatty liver. Your blood glucose was also high, suggesting diabetes which is not well controlled. Please follow-up with your primary care provider on both of these issues. Make sure that you are not taking more than 3 g of Tylenol daily, this can also cause some liver damage. You may take ibuprofen, and if needed you may take the Valium sparingly, but avoid using this with any other sedating medication. Forms: Activity restrictions Discharge Date/Time: 11/01/19 18:23
[2019-11-01 12:52] LABS: BASOPHILS # (AUTO) 0.1 10^3/uL (0.0-0.1); BASOPHILS % (AUTO) 0.8 %; EOSINOPHILS # (AUTO) 0.2 10^3/uL (0.0-0.7); EOSINOPHILS % (AUTO) 2.1 %; HGB - HEMOGLOBIN 14.8 g/dL (14.0-18.0); LYMPHOCYTES # (AUTO) 2.1 10^3/uL (1.5-3.5); LYMPHOCYTES % (AUTO) 29.5 %; MEAN CORPUSCULAR HEMOGLOBIN 30.5 pg (27.0-31.0); MEAN CORPUSCULAR HGB CONC 33.6 g/dL (32.0-36.0); MEAN CORPUSCULAR VOLUME 90.7 fL (80.0-94.0); MEAN PLATELET VOLUME 9.7 fL (7.4-11.4); MONOCYTES # (AUTO) 0.7 10^3/uL (0.0-1.0); MONOCYTES % (AUTO) 10.1 %; NEUTROPHILS % (AUTO) 56.5 %; PLT - PLATELET COUNT 207 10^3/uL (130-450); RED BLOOD COUNT 4.85 10^6/uL (4.70-6.10); RED CELL DISTRIBUTION WIDTH 13.2 % (12.0-15.0); WHITE BLOOD COUNT 7.2 x10^3/uL (4.8-10.8)
[2019-11-01 13:05] LABS: ALBUMIN 4.2 g/dL (3.2-5.5); ALBUMIN/GLOBULIN RATIO 1.2 (1.0-2.2); BILIRUBIN,TOTAL 0.8 mg/dL (0.2-1.0); CALCIUM 9.8 mg/dL (8.5-10.3); TOTAL PROTEIN 7.8 g/dL (6.7-8.2)
[2019-11-01] MEDS ORDERED: ONDANSETRON ODT 4 MG TABLET TL STA (14:36)
[2019-11-01] MEDS ORDERED: oxyCODONE 5 MG TABLET PO STA ×2 (14:36→17:32)
--- NOTE | 2019-11-01 17:47 | Ultrasound Report ---
Reason: RUQ pain, assess for biliary pathology Procedure Date: 11/01/2019 Accession Number: [id number] / [id number] Procedure: US - Abdomen Limited CPT Code: Final Report FULL RESULT: EXAM: ABDOMEN ULTRASOUND LIMITED, RUQ EXAM DATE: 11/01/2019 05:21 PM. CLINICAL HISTORY: Right upper quadrant pain, assess for biliary pathology. COMPARISON: None. TECHNIQUE: Real-time scanning was performed with static images obtained. FINDINGS: Liver: Severe fatty liver. Severe diffuse hyperechogenicity of the liver. Mild liver heterogeneity. Hepatomegaly. Liver length 28.8 cm. Suboptimal visualization due to limited penetration of the liver and patient's body habitus. Main portal vein flow: Hepatopetal. Gallbladder: Normal. No stones, wall thickening, or sonographic Dotson's sign. Biliary System: Common duct measures 4 mm. No intrahepatic or extrahepatic ductal dilatation. Portions are not well seen. Pancreas is not well seen. Other: The right kidney measures 14.1 cm in length and there is no hydronephrosis. IMPRESSION: 1. The gallbladder appears within normal limits. No bile duct dilatation is seen. 2. Severe fatty liver. 3. Limited visualization. See above. RADIA
[2019-11-01 18:13] VITALS: BP 140/96
== END 2019-11-01 18:23 | disposition home or self-care (01) ==
LOC: ED 11:14
DX: M54.6 Pain in thoracic spine (principal); G89.29 Other chronic pain; R74.8 Abnormal levels of other serum enzymes; K76.0 Fatty (change of) liver, not elsewhere classified; R73.9 Hyperglycemia, unspecified; I10 Essential (primary) hypertension
CPT/HCPCS: 36415; 76705; 80053; 83690; 85025; 99283; A9270; Q0162

== ENCOUNTER 2020-01-17 09:15 | Outpatient (CLI) | payer OTHER | END 2020-01-17 09:16 | disposition home or self-care (01) | LOC: DI 09:15 | DX: Z53.9 Procedure and treatment not carried out, unspecified reason (principal) ==

== ENCOUNTER 2020-02-04 13:56 | Outpatient (CLI) | payer OTHER ==
--- NOTE | 2020-02-08 13:02 | MRI Report ---
Reason: PAIN IN RT KNEE Procedure Date: 02/04/2020 Accession Number: [id number] / [id number] Procedure: MRI - Knee RT W/O CPT Code: Final Report FULL RESULT: EXAM: RIGHT KNEE MRI WITHOUT CONTRAST EXAM DATE: 02/04/2020 03:42 PM. CLINICAL HISTORY: PAIN IN RT KNEE. COMPARISON: None. TECHNIQUE: Multiplanar, multisequence T1-weighted and fluid-sensitive sequences of the knee without contrast. Other: None. FINDINGS: Bones and articular cartilage: There is a small 2 mm articular cartilage fissure or defect at the anterior medial aspect of the medial tibial plateau. Grade I-II chondromalacia, articular cartilage fissure, and subchondral marrow edema at the lateral patellar facet. No subluxations. No acute fracture. Medial Meniscus: The medial meniscus is intact. Lateral Meniscus: The lateral meniscus is intact. Cruciate Ligaments: The anterior and posterior cruciate ligaments are intact. Collateral Ligaments: The medial collateral and lateral collateral ligamentous structures are intact. Tendons: The quadriceps, patellar, semimembranosus, and popliteus tendons are unremarkable. Musculature: No edema or fatty atrophy. Other: No effusion. No popliteal cyst. No loose bodies. The medial and lateral retinacula are intact. Small amount of fluid at the semimembranosus-tibial collateral ligament bursa. Small ganglion or synovial cyst medial to the medial collateral ligament. IMPRESSION: 1. 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 2. Small amount of fluid at the semimembranosus-tibial collateral ligament bursa. Small ganglion or synovial cyst medial to the medial collateral ligament. 3. No ligament or meniscal tear. RADIA
== END 2020-02-04 13:57 | disposition home or self-care (01) ==
LOC: DI 13:56
DX: M94.261 Chondromalacia, right knee (principal); M25.861 Other specified joint disorders, right knee

== ENCOUNTER 2020-02-17 09:37 | Emergency (ER) | payer OTHER ==
--- NOTE | 2020-02-17 10:09 | XRAY Report ---
Reason: Chest pain Procedure Date: 02/17/2020 Accession Number: [id number] / [id number] Procedure: XR - Chest 1 View X-Ray CPT Code: 04361 Final Report FULL RESULT: EXAM: CHEST RADIOGRAPHY EXAM DATE: 02/17/2020 09:59 AM. CLINICAL HISTORY: Chest pain. Cough. COMPARISON: CHEST 2 VIEW 08/06/2019 9:55 PM. TECHNIQUE: 1 view. FINDINGS: Lungs/Pleura: No focal opacities evident. No pleural effusion. No pneumothorax. Mediastinum: Within exam limitations, the cardiomediastinal contour is normal. Other: None. IMPRESSION: 1. No acute disease in the chest. RADIA
[2020-02-17] MEDS ORDERED: ALBUTEROL NEB 2.5 MG/3 ML INH STA (10:14)
[2020-02-17 10:32] LABS: BASOPHILS % (AUTO) 0.8 %; EOSINOPHILS # (AUTO) 0.1 10^3/uL (0.0-0.7); HGB - HEMOGLOBIN 14.1 g/dL (14.0-18.0); LYMPHOCYTES % (AUTO) 40.7 %; MEAN CORPUSCULAR HEMOGLOBIN 31.3 pg (27.0-31.0); MEAN CORPUSCULAR HGB CONC 34.8 g/dL (32.0-36.0); MEAN CORPUSCULAR VOLUME 89.8 fL (80.0-94.0); MEAN PLATELET VOLUME 9.7 fL (7.4-11.4); MONOCYTES # (AUTO) 0.4 10^3/uL (0.0-1.0); MONOCYTES % (AUTO) 8.6 %; NEUTROPHILS # (AUTO) 2.3 10^3/uL (1.5-6.6); NEUTROPHILS % (AUTO) 47.5 %; PLT - PLATELET COUNT 152 10^3/uL (130-450); RED BLOOD COUNT 4.51 10^6/uL (4.70-6.10); RED CELL DISTRIBUTION WIDTH 13.2 % (12.0-15.0); WHITE BLOOD COUNT 4.9 x10^3/uL (4.8-10.8)
--- NOTE | 2020-02-17 10:38 | ED Physician Documentation ---
PD HPI URI - Stated complaint Stated Complaint: COUGH/SOA/CONGESTED - Chief complaint Chief Complaint: Resp - History obtained from History obtained from: Patient - History of Present Illness Timing - onset: How many days ago (5) Timing duration: Days (5) Timing details: Gradual onset Pain level max: 0 Pain level now: 0 Associated symptoms: Nasal congestion, Rhinorrhea, Dry cough, Dyspnea (States that he feels like his chest is tight.). No: Fever, Chills Contributing factors: COPD / asthma (Quit smoking 2 years ago). No: Sick contact Improves by: Rest Worsened by: Activity, Breathing Recently seen: Not recently seen Review of Systems Constitutional: denies: Fever, Chills GI: denies: Vomiting, Diarrhea Skin: denies: Rash Musculoskeletal: denies: Neck pain, Back pain Neurologic: denies: Headache PD PAST MEDICAL HISTORY - Past Medical History Past Medical History: Yes Cardiovascular: Hypertension, High cholesterol Respiratory: Sleep apnea, CPAP use Neuro: None Endocrine/Autoimmune: Type 2 diabetes GI: None : None HEENT: None Psych: None Musculoskeletal: None Derm: None - Past Surgical History Past Surgical History: Yes Ortho: Spine surgery - Present Medications Home Medications: Ambulatory Orders Medication Instructions Recorded Confirmed lisinopriL [Lisinopril] 10 mg PO DAILY 07/10/18 07/10/18 Azithromycin [Zithromax] 250 mg PO DAILY #6 tablet 03/13/19 Hydrocodone/Acetaminophen 1 - 2 each PO Q6H PRN #14 tablet 03/13/19 [Hydrocodon-Acetaminophen 5-325] Cyclobenzaprine [Flexeril] 10 mg PO TID PRN #20 tablet 08/06/19 Hydrocodone/Acetaminophen 1 - 2 each PO Q6H PRN #14 tablet 08/06/19 [Hydrocodon-Acetaminophen 5-325] Lidocaine Patch 5% [Lidoderm Patch] 1 each TOP DAILY PRN #7 patch 09/14/19 methocarbamoL [Methocarbamol] 500 mg PO TID PRN #15 tablet 09/14/19 diazePAM [Valium] 5 mg PO TID PRN #7 tablet 11/01/19 Albuterol Sulfate [Proair Hfa 1 - 2 puffs INH Q4H PRN #1 inhaler 02/17/20 Inhaler] Benzonatate [Tessalon Perle] 100 - 200 mg PO TID PRN #30 capsule 02/17/20 - Allergies Allergies/Adverse Reactions: Allergies Allergy/AdvReac Type Severity Reaction Status Date / Time codeine Allergy Unknown Verified 11/01/19 11:18 Penicillins Allergy Unknown Verified 11/01/19 11:18 - Social History Does the pt smoke?: No Smoking Status: Never smoker Does the pt drink ETOH?: Yes Does the pt have substance abuse?: No - Immunizations Immunizations are current?: Yes - POLST Patient has POLST: No PD ED PE NORMAL - Vitals Vital signs reviewed: Yes - General General: Alert and oriented X 3, No acute distress, Well developed/nourished - HEENT HEENT: PERRL, Ears normal, Moist mucous membranes, Pharynx benign - Neck Neck: Supple, no meningeal sign - Cardiac Cardiac: RRR, Strong equal pulses - Respiratory Respiratory: No respiratory distress, Other (Diminished breath sounds bilaterally) - Abdomen Abdomen: Soft, Non tender, Non distended - Derm Derm: Warm and dry, No rash - Extremities Extremities: No edema, No calf tenderness / cord - Neuro Neuro: Alert and oriented X 3 - Psych Psych: Normal mood, Normal affect Results - Vitals Vitals: Vital Signs - 24 hr 02/17/20 02/17/20 02/17/20 09:39 10:30 11:06 Temperature 36.6 C Heart Rate 100 69 92 Respiratory 18 18 20 Rate Blood Pressure 146/89 H 147/90 H 127/88 H O2 Saturation 97 99 95 02/17/20 02/17/20 11:07 11:35 Temperature Heart Rate 75 72 Respiratory 14 20 Rate Blood Pressure 130/85 H O2 Saturation 95 Oxygen O2 Source Room air - EKG (time done) 1002 Rate: Rate (enter#) (95) Rhythm: NSR [place]: Normal Intervals: Prolonged [place] QRS: Normal Ischemia: Normal ST segments - Labs Labs: Laboratory Tests 02/17/20 02/17/20 02/17/20 10:26 10:26 10:26 WBC 4.9 RBC 4.51 L Hgb 14.1 Hct 40.5 L MCV 89.8 MCH 31.3 H MCHC 34.8 RDW 13.2 Plt Count 152 MPV 9.7 Neut # (Auto) 2.3 Lymph # (Auto) 2.0 [place] # (Auto) 0.4 Eos # (Auto) 0.1 Baso # (Auto) 0.0 Absolute Nucleated RBC 0.00 Nucleated RBC % 0.0 Sodium 135 Potassium 3.7 Chloride 99 L Carbon Dioxide 26 Anion Gap 10.0 BUN 12 Creatinine 0.9 Estimated GFR (MDRD) 95 Glucose 144 H Calcium 9.3 Total Bilirubin 0.9 AST 57 H ALT 70 H Alkaline Phosphatase 42 Troponin I High Sens 8.5 Total Protein 7.4 Albumin 4.2 Globulin 3.2 Albumin/Globulin Ratio 1.3 Lipase 28 - Rads (name of study) cxr Radiology: Prelim report reviewed, EMP read contemporaneously, See rad report (No acute disease) PD MEDICAL DECISION MAKING - ED course Complexity details: reviewed results, re-evaluated patient, considered differential, d/w patient ED course: 39-year-old male with what appears to be a viral upper respiratory infection. Feels better after nebulizer treatment and feels like his breathing is easier. Chest pain resolved. Patient is very well-appearing, nontoxic. No respiratory distress or hypoxia. No evidence of acute coronary syndrome, pulmonary embolus. Patient counseled regarding signs and symptoms for which I believe and urgent re-evaluation would be necessary. Patient with good understanding of and agreement to plan and is comfortable going home at this time This document was made in part using voice recognition software. While efforts are made to proofread this document, sound alike and grammatical errors may occur. No evidence of aortic dissection. Departure - Departure Disposition: 01 Home, Self Care Clinical Impression: Viral URI with cough Condition: Good Instructions: ED Viral Syndrome Follow-Up: Conor Pierce MD [Primary Care Provider] - Within 1 week Prescriptions: Albuterol Sulfate [Proair Hfa Inhaler] 1 - 2 puffs INH Q4H PRN #1 inhaler PRN Reason: Shortness Of Air/Wheezing Benzonatate [Tessalon Perle] 100 - 200 mg PO TID PRN #30 capsule PRN Reason: Cough Comments: Use the medication as prescribed. Return if you worsen. Follow-up with your doctor for further care. Discharge Date/Time: 02/17/20 11:40
[2020-02-17 10:47] LABS: ALBUMIN 4.2 g/dL (3.2-5.5); ALBUMIN/GLOBULIN RATIO 1.3 (1.0-2.2); BILIRUBIN,TOTAL 0.9 mg/dL (0.2-1.0); CALCIUM 9.3 mg/dL (8.5-10.3); CREATININE 0.9 mg/dL (0.6-1.2); TOTAL PROTEIN 7.4 g/dL (6.7-8.2)
[2020-02-17 11:36] VITALS: BP 130/85
== END 2020-02-17 11:40 | disposition home or self-care (01) ==
LOC: ED 09:37
DX: J06.9 Acute upper respiratory infection, unspecified (principal); I10 Essential (primary) hypertension; E11.9 Type 2 diabetes mellitus without complications; Z87.891 Personal history of nicotine dependence
CPT/HCPCS: 36415; 71045; 80053; 83690; 84484; 85025; 93005; 94640; 99284

== ENCOUNTER 2020-04-03 09:22 | Emergency (ER) | payer OTHER ==
--- NOTE | 2020-04-03 09:45 | ED Physician Documentation ---
PD HPI CHEST PAIN - Stated complaint Stated Complaint: CP/SOA - Chief complaint Chief Complaint: Cardiac - History obtained from History obtained from: Patient - History of Present Illness Timing - onset: How many weeks ago (1) Timing - onset during: Rest (He states he has been noticing a feeling of some chest heaviness or tightness intermittently and occasional palpitation feeling as well. Most noticeable when he is resting. He states he feels better when days up and walking around. Because of the gyms being closed, he has not worked out regularly for the last several weeks but has been taking light walks etc. This morning while at his desk at work he noted onset of a heaviness and feeling of dyspnea and some sharp pain in the chest. He went home and rested it was still bothering him some so his drove him here. He had not been having a cough per se. He had been having some feeling of heaviness or tightness with breathing at times.) Timing - details: Abrupt onset, Still present (has eased since earlier this morning, but still some chest discomfort.), Intermittant Quality: Aching, Pain. No: Pressure, Tightness Location: Substernal, Left chest Radiation: Back. No: Jaw, Neck Associated symptoms: Shortness of air, Palpitations. No: Nausea, Vomiting, Feeling faint / dizzy, Cough Similar symptoms before: Has not had sx before Recently seen: Not recently seen Review of Systems Constitutional: denies: Fever, Chills, Myalgias Nose: denies: Rhinorrhea / runny nose, Congestion Throat: denies: Sore throat Cardiac: reports: Chest pain / pressure, Palpitations. denies: Pedal edema, Calf pain Respiratory: denies: Dyspnea, Cough GI: denies: Nausea, Vomiting Skin: denies: Rash, Lesions PD PAST MEDICAL HISTORY - Past Medical History Cardiovascular: Hypertension, High cholesterol Respiratory: Sleep apnea, CPAP use Neuro: None Endocrine/Autoimmune: Type 2 diabetes GI: None : None HEENT: None Psych: None Musculoskeletal: None Derm: None - Past Surgical History Past Surgical History: Yes Ortho: Spine surgery - Present Medications Home Medications: Ambulatory Orders Medication Instructions Recorded Confirmed lisinopriL [Lisinopril] 10 mg PO DAILY 07/10/18 07/10/18 Azithromycin [Zithromax] 250 mg PO DAILY #6 tablet 03/13/19 Hydrocodone/Acetaminophen 1 - 2 each PO Q6H PRN #14 tablet 03/13/19 [Hydrocodon-Acetaminophen 5-325] Cyclobenzaprine [Flexeril] 10 mg PO TID PRN #20 tablet 08/06/19 Hydrocodone/Acetaminophen 1 - 2 each PO Q6H PRN #14 tablet 08/06/19 [Hydrocodon-Acetaminophen 5-325] Lidocaine Patch 5% [Lidoderm Patch] 1 each TOP DAILY PRN #7 patch 09/14/19 methocarbamoL [Methocarbamol] 500 mg PO TID PRN #15 tablet 09/14/19 diazePAM [Valium] 5 mg PO TID PRN #7 tablet 11/01/19 Albuterol Sulfate [Proair Hfa 1 - 2 puffs INH Q4H PRN #1 inhaler 02/17/20 Inhaler] Benzonatate [Tessalon Perle] 100 - 200 mg PO TID PRN #30 capsule 02/17/20 Albuterol Sulfate [Albuterol 2 puffs IH QID #1 hfa.aer.ad 04/03/20 Sulfate Hfa] Naproxen 500 mg PO BID #20 tablet 04/03/20 dexAMETHasone [Decadron] 4 mg PO DAILY #5 tablet 04/03/20 - Allergies Allergies/Adverse Reactions: Allergies Allergy/AdvReac Type Severity Reaction Status Date / Time codeine Allergy Unknown Verified 04/03/20 09:29 Penicillins Allergy Unknown Verified 04/03/20 09:29 - Social History Does the pt smoke?: No Smoking Status: Never smoker Does the pt drink ETOH?: Yes Does the pt have substance abuse?: No - Immunizations Immunizations are current?: Yes - POLST Patient has POLST: No PD ED PE NORMAL - Vitals Vital signs reviewed: Yes - General General: Alert and oriented X 3, No acute distress, Well developed/nourished - HEENT HEENT: Pharynx benign - Neck Neck: Supple, no meningeal sign, No adenopathy - Cardiac Cardiac: RRR, No murmur - Respiratory Respiratory: Clear bilaterally, Other (some chestwall tenderness left lower sternal border, costochondral ridge. ) - Abdomen Abdomen: Soft, Non tender - Back Back: No CVA TTP - Derm Derm: Normal color - Extremities Extremities: No tenderness to palpate, Normal ROM s pain, No edema, No calf tenderness / cord - Neuro Neuro: Alert and oriented X 3, No motor deficit, Normal speech Results - Vitals Vitals: Oxygen O2 Source Room air - EKG (time done) 09:31 Rate: Rate (enter#) (104) Rhythm: Sinus tachycardia [place]: Normal Intervals: Normal [place] QRS: Normal Ischemia: Normal ST segments. No: ST elevation c/w ischemia, ST depression Compare to prior EKG: Old EKG unavailable - Labs Labs: Laboratory Tests 04/03/20 04/03/20 04/03/20 09:41 09:41 09:41 WBC 4.4 L RBC 4.72 Hgb 14.7 Hct 42.9 MCV 90.9 MCH 31.1 H MCHC 34.3 RDW 13.5 Plt Count 170 MPV 9.6 Neut # (Auto) 2.0 Lymph # (Auto) 1.8 [place] # (Auto) 0.4 Eos # (Auto) 0.1 Baso # (Auto) 0.1 Absolute Nucleated RBC 0.00 Nucleated RBC % 0.0 Sodium 134 L Potassium 4.1 Chloride 95 L Carbon Dioxide 29 Anion Gap 10.0 BUN 11 Creatinine 0.8 Estimated GFR (MDRD) 109 Glucose 341 H Calcium 9.4 Magnesium Total Bilirubin 0.7 AST 77 H ALT 111 H Alkaline Phosphatase 117 Troponin I High Sens 9.4 B-Natriuretic Peptide Total Protein 7.8 Albumin 4.2 Globulin 3.6 Albumin/Globulin Ratio 1.2 Lipase 49 04/03/20 04/03/20 09:41 09:41 WBC RBC Hgb Hct MCV MCH MCHC RDW Plt Count MPV Neut # (Auto) Lymph # (Auto) [place] # (Auto) Eos # (Auto) Baso # (Auto) Absolute Nucleated RBC Nucleated RBC % Sodium Potassium Chloride Carbon Dioxide Anion Gap BUN Creatinine Estimated GFR (MDRD) Glucose Calcium Magnesium 2.0 Total Bilirubin AST ALT Alkaline Phosphatase Troponin I High Sens B-Natriuretic Peptide 11 Total Protein Albumin Globulin Albumin/Globulin Ratio Lipase - Rads (name of study) chest xray Radiology: Prelim report reviewed (no acute process), See rad report PD MEDICAL DECISION MAKING - ED course Complexity details: considered differential (will get protocol labs/tests for chest pain. Does have some chestwall tenderness so consider costochondritis. ), d/w patient Departure - Departure Disposition: 01 Home, Self Care Clinical Impression: Chest pain Qualifiers: Chest pain type: precordial pain Qualified Code(s): R07.2 - Precordial pain Dyspnea Qualifiers: Dyspnea type: shortness of breath Qualified Code(s): R06.02 - Shortness of breath Condition: Stable Record reviewed to determine appropriate education?: Yes Instructions: ED Dyspnea Shortness of Breath Follow-Up: HAYLEY SUERO MD [Primary Care Provider] - Prescriptions: Albuterol Sulfate [Albuterol Sulfate Hfa] 2 puffs IH QID #1 hfa.aer.ad dexAMETHasone [Decadron] 4 mg PO DAILY #5 tablet Naproxen 500 mg PO BID #20 tablet Comments: No signs of acute heart failure or heart attack based on your EKG and blood test. Your chest x-ray is clear as well. I am presuming this is some inflammation through the chest wall and bronchials. Treated with some anti- inflammatories of both naproxen and Decadron as prescribed. Use the albuterol inhaler 3 to 4 puffs 2-3 times a day and extra times as needed. Rest today and tomorrow off work with light activity. Recheck if not improving well over the next few days and return sooner if worsening or other symptoms develop. Forms: Activity restrictions Discharge Date/Time: 04/03/20 12:27
[2020-04-03 09:47] LABS: BASOPHILS # (AUTO) 0.1 10^3/uL (0.0-0.1); BASOPHILS % (AUTO) 1.1 %; EOSINOPHILS # (AUTO) 0.1 10^3/uL (0.0-0.7); EOSINOPHILS % (AUTO) 2.7 %; HGB - HEMOGLOBIN 14.7 g/dL (14.0-18.0); LYMPHOCYTES # (AUTO) 1.8 10^3/uL (1.5-3.5); LYMPHOCYTES % (AUTO) 41.3 %; MEAN CORPUSCULAR HEMOGLOBIN 31.1 pg (27.0-31.0); MEAN CORPUSCULAR HGB CONC 34.3 g/dL (32.0-36.0); MEAN CORPUSCULAR VOLUME 90.9 fL (80.0-94.0); MEAN PLATELET VOLUME 9.6 fL (7.4-11.4); MONOCYTES # (AUTO) 0.4 10^3/uL (0.0-1.0); MONOCYTES % (AUTO) 8.8 %; NEUTROPHILS % (AUTO) 44.7 %; PLT - PLATELET COUNT 170 10^3/uL (130-450); RED BLOOD COUNT 4.72 10^6/uL (4.70-6.10); RED CELL DISTRIBUTION WIDTH 13.5 % (12.0-15.0); WHITE BLOOD COUNT 4.4 x10^3/uL (4.8-10.8)
--- NOTE | 2020-04-03 09:58 | XRAY Report ---
Reason: Chest Pain Procedure Date: 04/03/2020 Accession Number: [id number] / [id number] Procedure: XR - Chest 1 View X-Ray CPT Code: 94596 Final Report FULL RESULT: EXAM: CHEST RADIOGRAPHY EXAM DATE: 04/03/2020 09:48 AM. CLINICAL HISTORY: Chest pain and dyspnea. COMPARISON: CHEST 1 VIEW 02/17/2020 9:41 AM. TECHNIQUE: 1 view. FINDINGS: Lungs/Pleura: No focal opacities evident. No pleural effusion. No pneumothorax. Mediastinum: Within exam limitations, the cardiomediastinal contour is normal. Other: None. IMPRESSION: Normal single view chest. RADIA
[2020-04-03 10:00] LABS: ALBUMIN 4.2 g/dL (3.2-5.5); ALBUMIN/GLOBULIN RATIO 1.2 (1.0-2.2); BILIRUBIN,TOTAL 0.7 mg/dL (0.2-1.0); CALCIUM 9.4 mg/dL (8.5-10.3); CREATININE 0.8 mg/dL (0.6-1.2); TOTAL PROTEIN 7.8 g/dL (6.7-8.2)
[2020-04-03] MEDS ORDERED: ALBUTEROL 1 PUFF INH STA (11:01)
[2020-04-03] MEDS ORDERED: DEXAMETHASONE 10 MG/ML VIAL IVP STA (11:02)
[2020-04-03] MEDS ORDERED: KETOROLAC 30 MG/ML VIAL IVP STA (11:02)
[2020-04-03 12:25] VITALS: BP 151/92
== END 2020-04-03 12:27 | disposition home or self-care (01) ==
LOC: ED 09:22
DX: R07.2 Precordial pain (principal); R06.02 Shortness of breath; I10 Essential (primary) hypertension; E11.9 Type 2 diabetes mellitus without complications
CPT/HCPCS: 36415; 71045; 80053; 83690; 83735; 83880; 84484; 85025; 93005; 94640; 96374; 99284

== ENCOUNTER 2021-03-14 10:42 | Outpatient (CLI) | payer OTHER ==
[2021-03-14 11:24] VITALS: BP 139/85
--- NOTE | 2021-03-14 11:24 | SLEEP CARE CONSULTATION ---
Information from patient questionnaire entered by Julissa Navarro. I have reviewed and concur with the information entered by Julissa Navarro. This document represents the service I personally performed and the decisions made by , Jamilah Lucas ARNP. History of Present Illness Service Date and Time: 03/14/2021 1042 Previous diagnosis: Severe, Obstructive Sleep Apnea-Hypopnea Syndrome AHI: 51.2 (in 2018) Reason for follow up: annual (last seen 10/2019) Equipment type: CPAP Equipment obtained from: [employer] (getting supplies as needed) Mask style: Nasal pillows Backup mask available: Yes (old mask) Last cushion change: 2 weeks ago Prior sleep studies: Yes Year and Where: 2018 - [facility] Type of Sleep Study: Polysomnography (Split-night) HPI additional information: PRIETO ALEGRIA was diagnosed to have severe, AHI 51.2, obstructive sleep apnea- hypopnea syndrome and returned today for CPAP therapy annual follow-up. CPAP Compliance Data - Data Reviewed with Patient Average duration of nightly device use: 8 hr 4 min Compliance rate %: 97.8 (180 days) Current pressure setting (cmH2O): 11-12 Humidity settin Heated hose settin Average residual AHI: 0.9 Average large leak: 10 sec Subjective Patient concerns: reports: aerophagia, air blowing in eyes, mask leak noise, nasal congestion (drains every morning), epistaxis (slight from nasal drainage). denies: mask discomfort, condensation in mask/hose, dry mouth, nose, throat Observed to snore while using device: No Current pressure setting perceived as: comfortable On therapy, patient: reports: sleeping better, awakening more refreshed, being more awake and alert during the day, more rested overall. denies: drowsiness while driving Initial [place] Sleepiness Scale score: 16 (in 2018) Current [place] Sleepiness Scale score: 10 Allergies and Home Medications Home medication list reviewed: Yes (Metformin) Review of Systems Review of systems same as previous: No (Diabetes) Physical Exam Blood Pressure: 139/85 Cuff size: wrist Heart Rate: 86 O2 Saturation: 97 Height: 6 ft 1 in Weight: 295 lb Body Mass Index: 38.9 BMI Classification: Obese Impression and Plan 1. Obstructive Sleep Apnea-Hypopnea Syndrome, severe, with good treatment compliance and excellent apnea control. On CPAP therapy, the patient has better sleep quality and is more rested overall. His residual AHI is 0.9, so we have room to reduce pressure if needed and still maintain good apnea control. To reduce symptoms of aerophagia, the CPAP pressure will be reduced to 9-10 cmH2O. Patient advised to contact me if this does not reduce symptoms or if pressure change uncomfortable. Patient's apnea severity and rationale for treatment to reduce apnea, improve sleep quality and reduce cardiovascular and cerebrovascular events was reviewed. I also reviewed the benefit of consistent device use of CPAP for hypertension, depression and anxiety. * Change auto CPAP pressure to 9-10 cmH2O * Notify me if snoring with mask or feeling that the pressure is too much or too little * Attempt to lose weight * Call this office if any problems using CPAP * Return for follow up in 1 year, or sooner if concerns arise Counseling Topics: Spare mask, Weight loss health impact Time Spent with Patient (minutes): 20
== END 2021-03-14 10:43 | disposition home or self-care (01) ==
LOC: SC 10:42
PROVIDERS: ATTEND Nurse Practitioner Family
DX: G47.33 Obstructive sleep apnea (adult) (pediatric) (principal); E66.9 Obesity, unspecified; Z68.38 Body mass index [BMI] 38.0-38.9, adult
CPT/HCPCS: 99212; 99213

== ENCOUNTER 2021-05-21 10:42 | Emergency (ER) | payer OTHER ==
[2021-05-21] MEDS ORDERED: oxyCODONE 5 MG TABLET PO STA (12:26)
[2021-05-21] MEDS ORDERED: methocarbamoL 500 MG TABLET PO STA (12:26)
[2021-05-21] MEDS ORDERED: predniSONE 20 MG TABLET PO STA (12:27)
--- NOTE | 2021-05-21 12:36 | ED Physician Documentation ---
PD HPI BACK PAIN - Stated complaint Stated Complaint: BACK PX - Chief complaint Chief Complaint: Back Pain - History obtained from History obtained from: Patient - History of Present Illness Timing - onset: Today Timing - duration: Hours (2), Days Timing - details: Abrupt onset Pain level max: 10 Pain level now: 10 Location: Lower, Right, Left Quality: Pain, Spasm, Similar to prior episodes Associated symptoms: No: Fever, Weakness, Numbness, Incontinent of urine, Unable to urinate, Hematuria, Incontinent of stool Improves with: Rest Worsened by: Movement Contributing factors: Lifting - Additional information Additional information: Patient is a 40-year-old male who presents to the emergency department stating that he was at the gym earlier and 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 History of an L4-L5 fusion. No numbness or tingling. Better with walking, worse with sitting. No loss of bowel or bladder control. No fevers. No IV drug use. 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 Review of Systems Constitutional: denies: Fever, Chills GI: denies: Vomiting, Diarrhea Musculoskeletal: reports: Back pain Neurologic: denies: Focal weakness, Numbness PD PAST MEDICAL HISTORY - Past Medical History Past Medical History: Yes Cardiovascular: Hypertension, High cholesterol Respiratory: Sleep apnea, CPAP use Neuro: None Endocrine/Autoimmune: Type 2 diabetes GI: None : None HEENT: None Psych: None Musculoskeletal: None Derm: None - Past Surgical History Past Surgical History: Yes Ortho: Spine surgery - Present Medications Home Medications: Ambulatory Orders Medication Instructions Recorded Confirmed lisinopriL [Lisinopril] 10 mg PO DAILY 07/10/18 07/10/18 Azithromycin [Zithromax] 250 mg PO DAILY #6 tablet 03/13/19 Hydrocodone/Acetaminophen 1 - 2 each PO Q6H PRN #14 tablet 03/13/19 [Hydrocodon-Acetaminophen 5-325] Cyclobenzaprine [Flexeril] 10 mg PO TID PRN #20 tablet 08/06/19 Hydrocodone/Acetaminophen 1 - 2 each PO Q6H PRN #14 tablet 08/06/19 [Hydrocodon-Acetaminophen 5-325] Lidocaine Patch 5% [Lidoderm Patch] 1 each TOP DAILY PRN #7 patch 09/14/19 methocarbamoL [Methocarbamol] 500 mg PO TID PRN #15 tablet 09/14/19 diazePAM [Valium] 5 mg PO TID PRN #7 tablet 11/01/19 Albuterol Sulfate [Proair Hfa 1 - 2 puffs INH Q4H PRN #1 inhaler 02/17/20 Inhaler] Benzonatate [Tessalon Perle] 100 - 200 mg PO TID PRN #30 capsule 02/17/20 Albuterol Sulfate [Albuterol 2 puffs IH QID #1 hfa.aer.ad 04/03/20 Sulfate Hfa] Naproxen 500 mg PO BID #20 tablet 04/03/20 dexAMETHasone [Decadron] 4 mg PO DAILY #5 tablet 04/03/20 Ibuprofen [Motrin] 800 mg PO Q8H PRN #30 tablet 05/21/21 Oxycodone HCl/Acetaminophen 1 - 2 each PO Q6H PRN #14 tablet 05/21/21 [Percocet 5-325 mg Tablet] methocarbamoL [Robaxin] 500 mg PO Q6H PRN #20 tablet 05/21/21 predniSONE [Deltasone] 10 mg PO [id number] #42 tab 05/21/21 - Allergies Allergies/Adverse Reactions: Allergies Allergy/AdvReac Type Severity Reaction Status Date / Time codeine Allergy Unknown Verified 05/21/21 10:55 Penicillins Allergy Unknown Verified 05/21/21 10:55 - Social History Does the pt smoke?: No Smoking Status: Never smoker Does the pt drink ETOH?: Yes Does the pt have substance abuse?: No - Immunizations Immunizations are current?: Yes - POLST Patient has POLST: No PD ED PE NORMAL - Vitals Vital signs reviewed: Yes - General General: Alert and oriented X 3, No acute distress, Well developed/nourished - HEENT HEENT: PERRL, Moist mucous membranes - Neck Neck: Supple, no meningeal sign - Cardiac Cardiac: RRR - Respiratory Respiratory: No respiratory distress, Clear bilaterally - Abdomen Abdomen: Soft, Non tender, Non distended - Back Back: No spinal TTP (Midline tenderness. No step-off or deformity.), Other (Paraspinal spasm right greater than left.) - Derm Derm: Warm and dry - Extremities Extremities: No edema - Neuro Neuro: Alert and oriented X 3, No motor deficit, No sensory deficit, Other (Normal bilateral lower extremity patellar and ankle jerk reflexes. Normal great toe extension bilaterally. no saddle anesthesia) - Psych Psych: Normal mood, Normal affect Results - Vitals Vitals: Vital Signs - 24 hr 05/21/21 05/21/21 10:53 12:45 Temperature 36.0 C L 36.6 C Heart Rate 110 H 84 Respiratory 14 18 Rate Blood Pressure 204/98 H 180/106 H O2 Saturation 95 99 Oxygen O2 Source Room air PD MEDICAL DECISION MAKING - ED course Complexity details: considered differential (No cauda equina, no spinal epidural abscess, no fracture, no aortic dissection or evidence of aneursym rupture), d/w patient ED course: 40-year-old male with a back injury while lifting today. Possible herniated disc? No evidence of cauda equina, epidural abscess or fracture. No indication for imaging. Will place on steroids, pain medication and muscle relaxants for home. I am prescribing a short course of short-acting opioid pain medication for this patient. I have reviewed the patients PACKAGER MACHINE and no concerning findings were noted. I have discussed that the opioids are for short term therapy only, and will not be refilled from the ED. We will have him follow-up with his doctor for further care. Patient counseled regarding signs and symptoms for which I believe and urgent re-evaluation would be necessary. Patient with good understanding of and agreement to plan and is comfortable going home at this time This document was made in part using voice recognition software. While efforts are made to proofread this document, sound alike and grammatical errors may occur. Departure - Departure Disposition: 01 Home, Self Care Clinical Impression: Back spasm Condition: Good Instructions: ED Low Back Pain Injury Follow-Up: HAYLEY SUERO MD [Primary Care Provider] - Prescriptions: predniSONE [Deltasone] 10 mg PO [id number] #42 tab Ibuprofen [Motrin] 800 mg PO Q8H PRN #30 tablet PRN Reason: PAIN &/OR FEVER Oxycodone HCl/Acetaminophen [Percocet 5-325 mg Tablet] 1 - 2 each PO Q6H PRN #14 tablet PRN Reason: pain methocarbamoL [Robaxin] 500 mg PO Q6H PRN #20 tablet PRN Reason: muscle spasm Comments: Follow-up with your doctor in 1 week for repeat evaluation. Return if you wo rsen. Continue to gently stretch your back at home. Avoid heavy lifting. I am prescribing a short course of narcotic pain medication for you. These are potentially dangerous and addictive medications that should be used carefully. These medications may constipate you. Take an pron-wag-dhgarld stool softener (docusate) twice daily with plenty of water while taking these medications. If you go 24 hours without a bowel movement, take iofk-olf-jofyaki miralax, per package instructions. Do not drink or drive while taking these medications. If you received narcotic or sedating medications while in the emergency department, do not drive for 24 hours. Store this medication in a safe, secure place and out of reach of children. It is a violation of federal law to give or sell this medication to another person or to use in a manner other than prescribed. The ED will not refill narcotic prescriptions, including prescriptions lost or stolen. To dispose of unwanted medications: 1. [facility] at [address] in [place] has a medication drop box. They accept prescription medications (in pill form) Friday through Friday 9:00 a.m. to 5:00 p.m. 2. [facility] accepts prescription medications (in pill form only) for disposal year round. Call for more information. 3. Contact the [facility] for the next [facility] sponsored prescription drug collection event. , [phone], or [phone]; Discharge Date/Time: 05/21/21 12:45
[2021-05-21 12:47] VITALS: BP 180/106
== END 2021-05-21 12:45 | disposition home or self-care (01) ==
LOC: ED 10:42
DX: M62.830 Muscle spasm of back (principal); S39.92XA Unspecified injury of lower back, initial encounter; X50.0XXA Overexertion from strenuous movement or load, initial encounter; Y93.B3 Activity, free weights; Y92.39 Other specified sports and athletic area as the place of occurrence of the external cause; Z98.1 Arthrodesis status; I10 Essential (primary) hypertension; E11.9 Type 2 diabetes mellitus without complications
CPT/HCPCS: 99284; A9270; J7512

== ENCOUNTER 2021-07-20 15:47 | Emergency (ER) | payer OTHER ==
[2021-07-20 16:03] VITALS: BP 158/92
--- NOTE | 2021-07-20 16:41 | ED Physician Documentation ---
History of Present Illness - Stated complaint Stated Complaint: RT FOOT INJURY - Chief complaint Chief Complaint: Ext Problem - History obtained from History obtained from: Patient - History of Present Illness Timing: How many weeks ago (3+) - Additonal information Additional information: 40-year-old male rolled his ankle while doing physical training with the [employer] about 3 weeks ago. He has had some pain in the lateral aspect of his foot and in his ankle since that time and he is found that his ankle is rolling quite easily. He has continued to work and he has continued to walk and continued to have pain. He is feeling some cracking noises when his foot inverts and he is concerned about the possibility of a fracture. Review of Systems Constitutional: denies: Fever Nose: denies: Congestion Throat: denies: Sore throat Respiratory: denies: Cough GI: denies: Vomiting : denies: Dysuria Musculoskeletal: reports: Extremity pain, Joint pain, Extremity swelling, Joint swelling, Pain with weight bearing. denies: Neck pain, Back pain Neurologic: denies: Generalized weakness, Focal weakness, Numbness PD PAST MEDICAL HISTORY - Past Medical History Past Medical History: Yes Cardiovascular: Hypertension, High cholesterol Respiratory: Sleep apnea, CPAP use Neuro: None Endocrine/Autoimmune: Type 2 diabetes GI: None : None HEENT: None Psych: None Musculoskeletal: None Derm: None - Past Surgical History Past Surgical History: Yes Ortho: Spine surgery - Present Medications Home Medications: Ambulatory Orders Medication Instructions Recorded Confirmed lisinopriL [Lisinopril] 10 mg PO DAILY 07/10/18 07/10/18 Azithromycin [Zithromax] 250 mg PO DAILY #6 tablet 03/13/19 Hydrocodone/Acetaminophen 1 - 2 each PO Q6H PRN #14 tablet 03/13/19 [Hydrocodon-Acetaminophen 5-325] Cyclobenzaprine [Flexeril] 10 mg PO TID PRN #20 tablet 08/06/19 Hydrocodone/Acetaminophen 1 - 2 each PO Q6H PRN #14 tablet 08/06/19 [Hydrocodon-Acetaminophen 5-325] Lidocaine Patch 5% [Lidoderm Patch] 1 each TOP DAILY PRN #7 patch 09/14/19 methocarbamoL [Methocarbamol] 500 mg PO TID PRN #15 tablet 09/14/19 diazePAM [Valium] 5 mg PO TID PRN #7 tablet 11/01/19 Albuterol Sulfate [Proair Hfa 1 - 2 puffs INH Q4H PRN #1 inhaler 02/17/20 Inhaler] Benzonatate [Tessalon Perle] 100 - 200 mg PO TID PRN #30 capsule 02/17/20 Albuterol Sulfate [Albuterol 2 puffs IH QID #1 hfa.aer.ad 04/03/20 Sulfate Hfa] Naproxen 500 mg PO BID #20 tablet 04/03/20 dexAMETHasone [Decadron] 4 mg PO DAILY #5 tablet 04/03/20 Ibuprofen [Motrin] 800 mg PO Q8H PRN #30 tablet 05/21/21 Oxycodone HCl/Acetaminophen 1 - 2 each PO Q6H PRN #14 tablet 05/21/21 [Percocet 5-325 mg Tablet] methocarbamoL [Robaxin] 500 mg PO Q6H PRN #20 tablet 05/21/21 predniSONE [Deltasone] 10 mg PO [id number] #42 tab 05/21/21 - Allergies Allergies/Adverse Reactions: Allergies Allergy/AdvReac Type Severity Reaction Status Date / Time codeine Allergy Unknown Verified 07/20/21 16:03 Penicillins Allergy Unknown Verified 07/20/21 16:03 - Social History Does the pt smoke?: No Smoking Status: Never smoker Does the pt drink ETOH?: Yes Does the pt have substance abuse?: No - Immunizations Immunizations are current?: Yes - POLST Patient has POLST: No PD ED PE NORMAL - Vitals Vital signs reviewed: Yes (Hypertensive) - General General: Alert and oriented X 3, No acute distress, Well developed/nourished - HEENT HEENT: Atraumatic, PERRL, EOMI - Respiratory Respiratory: No respiratory distress - Derm Derm: Normal color, Warm and dry, No rash - Extremities Extremities: No deformity, No edema, Other (Swelling and point tenderness to the right proximal fifth metatarsal. Swelling and tenderness over the talofibular ligament and over the plantar surface of the foot centrally.) - Neuro Neuro: Alert and oriented X 3, firer boiler 2-12 intact, No motor deficit, No sensory deficit, Normal speech Eye Opening: Spontaneous Motor: Obeys Commands Verbal: Oriented GCS Score: 15 - Psych Psych: Normal mood, Normal affect Results - Vitals Vitals: Vital Signs - 24 hr 07/20/21 15:57 Temperature 36.7 C Heart Rate 88 Respiratory 16 Rate Blood Pressure 158/92 H O2 Saturation 94 Oxygen O2 Source Room air - Rads (name of study) ankle Radiology: Prelim report reviewed (Impression: No trauma found. No malalignment seen. Given persistent pain depending on the clinical status follow-up by MR scanning may be come necessary), EMP read indepedently, See rad report foot Radiology: Prelim report reviewed PD MEDICAL DECISION MAKING - ED course Complexity details: reviewed results, re-evaluated patient, considered differential, d/w patient ED course: 40-year-old male who has rolled his ankle 3 weeks ago has recurring symptoms he has not been in any type of immobilization since the incident occurred. He is placed into a walking boot after x-rays demonstrate no evidence of fracture. Departure - Departure Disposition: 01 Home, Self Care Clinical Impression: Sprain and strain of ankle Sprain of foot, right Qualifiers: Encounter type: initial encounter Qualified Code(s): S93.601A - Unspecified sprain of right foot, initial encounter Condition: Stable Instructions: ED Sprain Ankle W X Ray, ED Sprain Foot Follow-Up: SONG Edward [Provider Group]
--- NOTE | 2021-07-20 16:41 | XRAY Report ---
PROCEDURE: Ankle 3 View RT INDICATIONS: fall, ankle pain 2 weeks ago TECHNIQUE: 3 views of the ankle were acquired. COMPARISON: None FINDINGS: Bones: No fractures or dislocations. Ankle mortise is normally aligned. No suspicious bony lesions . Soft tissues: No tibiotalar joint effusion. Achilles tendon appears normal. IMPRESSION: No trauma found. No malalignment seen. Given persistent pain depending on the clinical s tatus follow-up by MR scanning may become necessary. Reviewed by: Gianluca Betancur MD on 07/20/2021 4:39 PM PDT Approved by: Gianluca Betancur MD on 07/20/2021 4:39 PM PDT Station ID: [id number]
--- NOTE | 2021-07-20 17:14 | XRAY Report ---
PROCEDURE: Foot 3 View RT INDICATIONS: proximal 5th pain TECHNIQUE: 3 views of the foot were acquired. COMPARISON: None FINDINGS: Bones: No fractures or dislocations. No suspicious bony lesions. Soft tissues: No tibiotalar joint effusion. Achilles tendon appears normal. IMPRESSION: Unremarkable right foot radiographs Reviewed by: Clark Lerma MD on 07/20/2021 4:13 PM AKDT Approved by: Clark Lerma MD on 07/20/2021 4:13 PM AKDT Station ID: [id number]
== END 2021-07-20 17:15 | disposition home or self-care (01) ==
LOC: ED 15:47
DX: S93.601A Unspecified sprain of right foot, initial encounter (principal); X58.XXXA Exposure to other specified factors, initial encounter; Y93.79 Activity, other specified sports and athletics; Y99.1 Military activity; I10 Essential (primary) hypertension; E11.9 Type 2 diabetes mellitus without complications
CPT/HCPCS: 99282; 99283

== ENCOUNTER 2022-04-03 13:44 | Outpatient (CLI) | payer OTHER ==
[2022-04-03 14:20] VITALS: BP 126/75
--- NOTE | 2022-04-03 14:20 | SLEEP CARE CONSULTATION ---
Information from patient questionnaire entered by Tavia Ordoñez MA. I have reviewed and concur with the information entered by Tavia Ordoñez MA. This document represents the service I personally performed and the decisions made by , Jamilah Lucas ARNP. History of Present Illness Service Date and Time: 04/03/2022 1344 Previous diagnosis: Severe, Obstructive Sleep Apnea-Hypopnea Syndrome AHI: 51.2 (in 2018) Reason for follow up: annual (LAST SEEN 03/14/2022, [facility],) Equipment type: CPAP Equipment obtained from: [employer] (getting supplies as needed) Mask style: Nasal pillows Backup mask available: Yes (old mask) Last cushion change: 2 months ago Prior sleep studies: Yes Year and Where: 2017 - [facility] Type of Sleep Study: Polysomnography (Split-night) HPI additional information: PRIETO ALEGRIA was diagnosed to have severe, AHI 51.2, obstructive sleep apnea- hypopnea syndrome and returned today for CPAP therapy annual follow-up. Sleep Study - Results Type of Sleep Study: Polysomnography (Split-night) Prior sleep studies: Yes Year and Where: 2017 - [facility] CPAP Compliance Data - Data Reviewed with Patient Average duration of nightly device use: 8 HOURS 4 MINUTES Compliance rate %: 99.4 Current pressure setting (cmH2O): 9-10 Humidity settin Heated hose settin Average residual AHI: 1.1 Average large leak: 42 SECONDS Subjective Missed days of use due to: reports: other (POWER OUTAGE) Patient concerns: reports: other (BLOATED - may be GI related). denies: aerophagia, mask discomfort, air blowing in eyes, mask leak noise, condensation in mask/hose, nasal congestion, dry mouth, nose, throat, epistaxis Observed to snore while using device: Yes (rare) Current pressure setting perceived as: comfortable On therapy, patient: reports: sleeping better, awakening more refreshed, being more awake and alert during the day, more rested overall, other (states he can't sleep without it). denies: drowsiness while driving Initial [place] Sleepiness Scale score: 16 (in 2018) Current [place] Sleepiness Scale score: 14 (03/2022) Allergies and Home Medications Home medication list reviewed: Yes (no changes) Allergy and home medication list: Allergies codeine Allergy (Verified 07/20/21 16:03) Unknown Penicillins Allergy (Verified 07/20/21 16:03) Unknown Review of Systems Review of systems same as previous: Yes (no changes) Physical Exam Vital signs obtained and entered by: AN JASSO Blood Pressure: 126/75 (RIGHT, PULSE 110, RESP 20, ) Heart Rate: 108 O2 Saturation: 97 (PAPER MASK) Height: 6 ft 1 in Weight: 285 lb (WITH CLOTHES AND SHOES) Weight change since last visit: 10 lb loss Body Mass Index: 37.5 BMI Classification: Obese Impression and Plan 1. Obstructive Sleep Apnea-Hypopnea Syndrome, severe, with excellent treatment compliance and good apnea control. On CPAP therapy, the patient has better sleep quality and is more rested overall. He states he feels bloated and has excessive gas sometimes. He states it does not improve throughout the day. He has an appointment with a GI specialist to look into this. He has not other issues with the CPAP. He does have a [employer]station that was updated in 2019 but he has not registered it yet. Patient was encouraged to register their device online with [employer] for the recall to see if their device is affected. If their device is affected they should start a claim. Patient states that he is not able to sleep without his CPAP, so he will continue use at this time. Patient voiced understanding and agreement with plan. Patient's apnea severity and rationale for treatment to reduce apnea, improve sleep quality and reduce cardiovascular and cerebrovascular events was reviewed. I also reviewed the benefit of consistent device use of CPAP for hypertension, depression and anxiety. Patient states he is retiring in about 8 months and will be moving out of the area at that time. 2. Obesity, unspecified. Patient has lost weight. Currently patients BMI is 37.5. Obesity increases the risk of apnea, CPAP pressure requirements and overall health risks especially cardiovascular and diabetes. Thus patient is advised to continue to try to lose weight. Weight loss can be done with reducing portion size, reducing refined foods and balancing content with vegetables, fruit and whole grain foods. In addition, patient encouraged to get regular exercise. The patient's CPAP pressure range should accommodate some weight loss. Symptoms to report for additional pressure adjustment discussed. * Continue auto CPAP pressure at 9-10 cmH2O * Notify me if snoring with mask or feeling that the pressure is too much or too little * Attempt to lose weight * Call this office if any problems using CPAP * Return for follow up in 1 year, or sooner if concerns arise Counseling Topics: Spare mask, Weight loss health impact Visit Type: In Office Time Spent with Patient (minutes): 20 Provider Statement: I spent 100% of the Face to Face Visit with the patient with greater than 50% spent counseling the patient and coordination of care.
== END 2022-04-03 13:45 | disposition home or self-care (01) ==
LOC: SC 13:44
PROVIDERS: ATTEND Nurse Practitioner Family
DX: G47.33 Obstructive sleep apnea (adult) (pediatric) (principal); E66.9 Obesity, unspecified; Z68.37 Body mass index [BMI] 37.0-37.9, adult
CPT/HCPCS: 99212; 99213